=== PATIENT | male | born 1970 | race Hispanic/Latino ===

== ENCOUNTER → 2023-08-20 | Outpatient (REF) | payer OTHER ==
[~2023-08-20] MED LIST: FENOFIBRATE145 MG PO; PANTOPRAZOLE SO40 MG PO; SIMVASTATIN40 MG PO; [UNRECOGNIZED DRUG - CODE]
== END ==
LOC: MRI 12:10
PROVIDERS: ATTEND Family Medicine
DX: M67.813 Other specified disorders of tendon, right shoulder (principal); S46.911A Strain of unspecified muscle, fascia and tendon at shoulder and upper arm level, right arm, initial encounter